=== PATIENT | male | born 1955 | race Caucasian/White ===

== ENCOUNTER 2017-07-04 00:08 | Emergency (ER) | payer OTHER ==
[~2017-07-04] VITALS: Ht 182.8 cm; Wt 113.4 kg
[2017-07-04] MEDS ORDERED: NAPROSYN500 MG PO ×2 (02:21→02:23)
== END 2017-07-04 03:07 | disposition home or self-care (01) ==
LOC: ED 00:08
DX: M25.462 Effusion, left knee (principal); X50.9XXA Other and unspecified overexertion or strenuous movements or postures, initial encounter; Y93.89 Activity, other specified; Y92.69 Other specified industrial and construction area as the place of occurrence of the external cause; Y99.9 Unspecified external cause status

== ENCOUNTER 2019-06-03 12:37 | Emergency (ER) | payer SELFPAY ==
[~2019-06-03] VITALS: Ht 182.8 cm; Wt 111.1 kg
[~2019-06-03 12:37] MED LIST: NAPROSYN500 MG PO
== END 2019-06-03 14:10 | disposition home or self-care (01) ==
LOC: ED 12:37
DX: S60.222A Contusion of left hand, initial encounter (principal); W22.8XXA Striking against or struck by other objects, initial encounter; Y93.89 Activity, other specified; Y92.89 Other specified places as the place of occurrence of the external cause; Y99.8 Other external cause status